=== PATIENT | male | born 1985 | race Two or more races ===

== ENCOUNTER 2020-12-17 20:51 | Emergency (ER) | payer SELFPAY ==
[~2020-12-17] VITALS: Ht 165.1 cm; Wt 63.5 kg
--- NOTE | 2020-12-17 21:15 | NUR ---
BIBRA 58 FROM HOME C/O METH OD. GIVEN NARCAN 1MG IVP. PT AAOX4 UPON TRIAGE. PT ALERT AND ORIENTED X2. PLACED ON MONITOR.
[2020-12-17] MEDS ORDERED: NALO4SPR NS (22:37)
[2020-12-17 22:56] VITALS: BP 133/80
--- NOTE | 2020-12-17 22:56 | NUR ---
Patient discharged to home in stable condition. Written and verbal after care instructions given. Patient verbalizes understanding of instruction.
== END 2020-12-17 22:57 | disposition home or self-care (01) ==
LOC: ER 20:56
DX: T40.2X1A Poisoning by other opioids, accidental (unintentional), initial encounter (principal); R11.11 Vomiting without nausea; F41.9 Anxiety disorder, unspecified; Y92.89 Other specified places as the place of occurrence of the external cause

== ENCOUNTER 2021-04-03 19:37 | Inpatient (IN) | payer MEDICAID ==
[~2021-04-03] VITALS: Ht 167.6 cm; Wt 68.0 kg
[~2021-04-03 19:37] MED LIST: NALO4SPR NS
--- NOTE | 2021-04-03 20:11 | NUR ---
PATIENT BIBRA WITH LAW ENFORCMENT @ BEDSIDE. PATIENT C/O LEFT FOOT PAIN S/P "INJECTING HEROIN". PATIENT ALERT AND ORIENTED X4. AMBULATORY WITH NON LABORED BREATHING. PATIENT DENIES HAVING S/I.
[2021-04-03] MEDS ORDERED: CT SWABBABLE VALVE TRANS SET 1 EA INFUS.SET MC ONE (20:23)
[2021-04-03] MEDS ORDERED: IV NS 0.9% 250 ML IV ONE (20:23)
[2021-04-03] MEDS ORDERED: IOHEXOL-300 100 ML VIAL IV ONE (20:23)
[2021-04-03] MEDS ORDERED: VANCOMYCIN 1 GM in IV D5W 250 ML IV ONE (20:30)
[2021-04-03] MEDS ORDERED: CEFEPIME 1 GM in IV D5W 50 ML IV ONE (20:30)
[2021-04-03] MEDS ORDERED: KETOROLAC TROMETHAMINE INJ 30 MG/ML VIAL IV ONE (20:30)
[2021-04-03] MEDS ORDERED: IV NS 0.9% 1,000 ML BAG IV ONE (20:30)
--- NOTE | 2021-04-03 20:37 | NUR ---
URINE SENT TO LAB
--- NOTE | 2021-04-03 20:37 | NUR ---
BLOOD AND CULTURES SENT TO LAB
--- NOTE | 2021-04-03 20:37 | NUR ---
PATIENT GOING TO CT.
--- NOTE | 2021-04-03 20:51 | NUR ---
PT RETURNED TO ER BED [address] VIA ERCISTEFANY
[2021-04-03] MEDS ORDERED: VANCOMYCIN 1 GM VIAL ONE (20:53)
[2021-04-03] MEDS ORDERED: CEFEPIME 1 GM VIAL ONE (20:53)
[2021-04-03] MEDS ORDERED: KETOROLAC TROMETHAMINE INJ 30 MG/ML VIAL ONE (20:53)
[2021-04-03 21:09] LABS: BASOPHILS # (AUTO) 0.1 K/uL (0.0-0.2); BASOPHILS % (AUTO) 0.6 % (0.0-2.0); EOSINOPHILS % (AUTO) 0.5 % (0.0-6.0); HEMATOCRIT 44 % (39-51); HEMOGLOBIN 14.5 g/dL (13.5-17.5); LYMPHOCYTES # (AUTO) 1.6 K/uL (0.8-4.8); LYMPHOCYTES % (AUTO) 11.7 % (20.0-44.0); MEAN CORPUSCULAR HGB CONC 33 g/dl (31.0-36.0); MEAN CORPUSCULAR VOLUME 87 fL (80-96); MONOCYTES # (AUTO) 0.8 K/uL (0.1-1.30); MONOCYTES % (AUTO) 5.9 % (2.0-12.0); NEUTROPHILS # (AUTO) 11.2 K/uL (1.8-8.9); NEUTROPHILS % (AUTO) 81.3 % (43.0-81.0); PLATELET COUNT (AUTO) 347 K/uL (150-450); RED BLOOD CELL COUNT(AUTO) 5.12 MIL/uL (4.5-6.0); WHITE BLOOD COUNT (AUTO) 13.8 K/uL (4.3-11.0)
[2021-04-03 21:12] LABS: BILIRUBIN,URINE NEGATIVE (NEGATIVE); COLOR,URINE YELLOW (YELLOW); LEUKOCYTE ESTERASE ,URINE NEGATIVE (NEGATIVE); NITRITE, URINE NEGATIVE (NEGATIVE); PROTEIN,URINE TRACE mg/dl (NEGATIVE); UGLUCOSE NEGATIVE (NEGATIVE)
[2021-04-03 21:25] LABS: BACTERIA,URINE None seen /HPF (None Seen); RBC,URINE 0-2 /HPF (0-2); WBC,URINE 0-2 /HPF (0-3)
[2021-04-03 21:26] LABS: MUCUS,URINE Many /LPF (None Seen); SQUAMOUS EPITHELIAL CELL,UR 0-2 /HPF (None Seen)
[2021-04-03 21:27] LABS: CALCIUM, SERUM 9.1 mg/dL (8.5-10.1); CARBON DIOXIDE 28 mmol/L (21-32); CHLORIDE 98 mmol/L (98-107); CREATININE 0.9 mg/dL (0.6-1.3); GLUCOSE 149 mg/dL (74-106); POTASSIUM 4.4 mmol/L (3.5-5.1); SODIUM SERUM 135 mmol/L (136-145); UREA NITROGEN, BLOOD 10 mg/dL (7-18)
--- NOTE | 2021-04-03 21:33 | NUR ---
COVID SWAB DONE AND SENT TO LAB
[2021-04-03 21:40] LABS: ALANINE AMINOTRANSFERASE 55 U/L (12-78); ALBUMIN 3.5 g/dL (3.4-5.0); ALCOHOL, BLOOD < 3 mg/dL (0-0); ALKALINE PHOSPHATASE 87 U/L (46-116); ASPARTATE AMINOTRANSFERASE 28 U/L (15-37); BILIRUBIN,DIRECT 0.2 mg/dL (0.0-0.2); BILIRUBIN,TOTAL 0.9 mg/dL (0.2-1.0); TOTAL PROTEIN, SERUM 8.5 g/dL (6.4-8.2)
[2021-04-03 22:20] LABS: ACETAMINOPHEN 0 ug/ml (10-30)
--- NOTE | 2021-04-03 23:17 | NUR ---
PATIENT RESTING COMFORTBALY NO COMPLAINTS AT THIS TIME.
--- NOTE | 2021-04-04 00:11 | NUR ---
MRSA SWAB COLLECTED AND SENT TO LAB. PATIENT'S BELONGINGS LIST DONE.
[2021-04-04] MEDS ORDERED: ACETAMINOPHEN 325 MG TABLET PO PRN (01:30)
[2021-04-04] MEDS ORDERED: Z GUARD REMEDY 4 OZ OINT TP PRN (01:30)
[2021-04-04] MEDS ORDERED: ONDANSETRON HCL/PF 4 MG/2 ML VIAL IVP PRN (01:30)
[2021-04-04] MEDS ORDERED: MAG HYDROX/AL HYDROX/SIMETH 30 ML UDC PO PRN (01:30)
[2021-04-04] MEDS ORDERED: MAGNESIUM HYDROXIDE 30 ML UDC PO PRN (01:30)
[2021-04-04] MEDS ORDERED: AZTREONAM 1 G VIAL ONE (02:48)
[2021-04-04] MEDS ORDERED: MORPHINE SULFATE INJ 2 MG/ML DISP.SYRIN ONE ×2 (02:48→08:21)
[2021-04-04] MEDS: IV NS 0.9% 1,000 ML IV PRN ×2 (03:04→16:15)
[2021-04-04] MEDS: MORPHINE SULFATE INJ 2 MG/ML DISP.SYRIN IV PRN ×4 (03:04→21:41)
--- NOTE | 2021-04-04 03:05 | NUR ---
MORPHINE 2MG GIVEN ORDERED PER PT'S REQUEST AND C/O BLE PAIN
[2021-04-04] MEDS ORDERED: AZTREONAM 1 G in IV NS 0.9% 100 ML IV SCH ×2 (05:00→13:00)
[2021-04-04] MEDS ORDERED: VANCOMYCIN 1 GM in IV D5W 250 ML IV ONE (05:30)
[2021-04-04] MEDS ORDERED: OXYC1TAB12 PO (06:30)
[2021-04-04] MEDS ORDERED: ALPR2TAB7 PO (06:30)
[2021-04-04] MEDS ORDERED: PANTOPRAZOLE 40 MG TABLET.DR PO ONE (07:43)
[2021-04-04] MEDS: PANTOPRAZOLE 40 MG TABLET.DR PO SCH (07:43)
[2021-04-04] MEDS: VANCOMYCIN 1 GM in IV D5W 250ml IV SCH ×2 (08:56→17:00)
[2021-04-04] MEDS ORDERED: HYDROMORPHONE 1 MG/1 ML DISP.SYRIN IV ONE (11:30)
[2021-04-04] MEDS ORDERED: LIDOCAINE 1%-EPI 1:100,000 20 ML VIAL ONE (11:57)
[2021-04-04] MEDS ORDERED: HYDROMORPHONE 1 MG/1 ML DISP.SYRIN ONE (11:58)
[2021-04-04] MEDS ORDERED: LIDOCAINE 1%-EPI 1:200,000 SDV 10 ML VIAL IJ ONE (12:00)
[2021-04-04] MEDS: CIPROFLOXACIN IV RTU 400 MG in PREMIX 1 EA IV SCH (12:00)
[2021-04-04] MEDS: METRONIDAZOLE 500MG/ NS 100ML 500 MG in PREMIX 1 EA IV SCH ×2 (13:40→21:32)
[2021-04-04] MEDS ORDERED: ONDANSETRON HCL/PF 4 MG/2 ML VIAL ONE (15:28)
[2021-04-04] MEDS ORDERED: MORPHINE SULFATE INJ 4 MG/ML DISP.SYRIN ONE ×2 (15:29→21:34)
[2021-04-04] MEDS ORDERED: CLONIDINE HCL 0.1 MG TABLET PO PRN (17:00)
[2021-04-04] MEDS ORDERED: LOPERAMIDE HCL (2 MG CAP) 2 MG CAPSULE PO PRN (17:00)
[2021-04-04] MEDS ORDERED: METHOCARBAMOL (500MG) 500 MG TABLET PO PRN (17:00)
--- NOTE | 2021-04-04 19:53 | NUR ---
REPORT GIVEN TO NURSE MAT FOR CASSANDRA
[2021-04-04] MEDS ORDERED: METRONIDAZOLE 500MG/ NS 100ML 100 ML IV ONE (21:27)
[2021-04-04] MEDS ORDERED: LORAZEPAM INJ 2 MG/ML VIAL ONE (23:58)
[2021-04-05] MEDS: LORAZEPAM INJ 2 MG/ML VIAL IV PRN ×2 (00:01→09:52)
[2021-04-05] MEDS: CIPROFLOXACIN IV RTU 400 MG in PREMIX 1 EA IV SCH ×2 (00:07→13:00)
[2021-04-05] MEDS: VANCOMYCIN 1 GM in IV D5W 250ml IV SCH ×2 (01:28→09:10)
[2021-04-05] MEDS ORDERED: MORPHINE SULFATE INJ 4 MG/ML DISP.SYRIN ONE ×3 (04:43→14:04)
[2021-04-05] MEDS: MORPHINE SULFATE INJ 2 MG/ML DISP.SYRIN IV PRN ×3 (04:45→14:10)
[2021-04-05 05:00] LABS: BASOPHILS # (AUTO) 0.1 K/uL (0.0-0.2); BASOPHILS % (AUTO) 0.6 % (0.0-2.0); EOSINOPHILS % (AUTO) 1.2 % (0.0-6.0); HEMATOCRIT 44 % (39-51); HEMOGLOBIN 14.5 g/dL (13.5-17.5); LYMPHOCYTES # (AUTO) 1.4 K/uL (0.8-4.8); LYMPHOCYTES % (AUTO) 17.3 % (20.0-44.0); MEAN CORPUSCULAR HGB CONC 33 g/dl (31.0-36.0); MEAN CORPUSCULAR VOLUME 86 fL (80-96); MONOCYTES # (AUTO) 0.8 K/uL (0.1-1.30); MONOCYTES % (AUTO) 9.5 % (2.0-12.0); NEUTROPHILS # (AUTO) 5.7 K/uL (1.8-8.9); NEUTROPHILS % (AUTO) 71.4 % (43.0-81.0); PLATELET COUNT (AUTO) 368 K/uL (150-450); RED BLOOD CELL COUNT(AUTO) 5.08 MIL/uL (4.5-6.0)
[2021-04-05 05:23] LABS: ALBUMIN 3.4 g/dL (3.4-5.0); CALCIUM, SERUM 9.3 mg/dL (8.5-10.1); MAGNESIUM 2.1 mg/dL (1.8-2.4); PHOSPHORUS 3.8 mg/dL (2.5-4.9); POTASSIUM 4.1 mmol/L (3.5-5.1); TOTAL PROTEIN, SERUM 8.6 g/dL (6.4-8.2)
[2021-04-05] MEDS: IV NS 0.9% 1,000 ML IV PRN (05:27)
[2021-04-05] MEDS: METRONIDAZOLE 500MG/ NS 100ML 500 MG in PREMIX 1 EA IV SCH ×2 (05:33→14:00)
--- NOTE | 2021-04-05 06:02 | NUR ---
PATIENT RESTING COMFORTABLY NO COMPLAINTS AT THIS TIME.
[2021-04-05] MEDS: PANTOPRAZOLE 40 MG TABLET.DR PO SCH (07:33)
[2021-04-05] MEDS ORDERED: PANTOPRAZOLE 40 MG TABLET.DR PO ONE (07:35)
--- NOTE | 2021-04-05 09:00 | NUR ---
FOOD SERVICE TECHNICIAN CAME IN TO SEE PATIENT AND REPORTED TO DR GLEZ SAYING THAT THEY ARE BREAKING THE 5150 HOLD, WAITING ON REPORT
[2021-04-05] MEDS ORDERED: LORAZEPAM INJ 2 MG/ML VIAL ONE (09:52)
--- NOTE | 2021-04-05 10:01 | NUR ---
SEEN BY SURESH LAW
--- NOTE | 2021-04-05 10:23 | NUR ---
Pt. is no longer SI. SW will provide pt. with addiction resources.
--- NOTE | 2021-04-05 12:20 | NUR ---
SS consult for polysubstance abuse. Pt. Is a 35-year-old male. Pt. demonstrates adequate insight to the reason for hospitalization. Per pt., he was brought to hospital by ambulance. Pt. was oriented x3, alert, and cooperative. During interview, pt. was capable of following directions, made appropriate eye-contact, and appeared groomed. Pt.'s speech was at a normal rate. Pt.'s mood was elevated. SW explored pt.'s hx of mental health and substance abuse. Per pt., he uses methamphetamines and heroin. He stated that the last time he used heroin was couple days ago. Pt. reported history of anxiety. Pt. reported that he is no longer suicidal and has not attempted. Pt. denies no homicidal ideation. Pt. denies auditory hallucinations, visual hallucinations, paranoia, or delusions. SW explored pt.'s living situation. Per pt., he lives with his dad [[address] [place] [address]]. Per pt., he reports having adequate support from his parents. Pt. is no longer on hold and will be admitted to hospital if bed is available. Pt. stated that if there is no bed available, he is willing to go home. Plan: SW provided available addiction resources and pt. accepted. Resources Provided: Substance Abuse resources provided included: [facility] Substance Abuse Self-Helpline ([facility]) ; [facility] [id number] [facility] [place] [id number] ; [facility] [address] [facility] [address] ; [facility] [address] [facility] [address] ; [facility] [address] [facility] [address] [facility] [address] [facility] [address] ; [facility] [address] [facility] [id number] ; [facility] Substance Abuse Helpline([facility] ; [facility] ; [facility] [place] [place]; [facility] [place]; [facility] [place]; [facility] [place]; [place] [facility] [place] [place]; [facility], [facility]. [place]; Alcoholics Anonymous [facility]; [facility] ; Marijuana Anonymous [facility]; Narcotics Anonymous www.na.org;
--- NOTE | 2021-04-05 14:37 | NUR ---
SPOKE WITH GIDEON [phone]
--- NOTE | 2021-04-05 15:24 | NUR ---
IV removed. Catheter intact and site benign. Pressure and 4x4 applied to site. No bleeding noted.Patient discharged to home in stable condition. Written and verbal after care instructions given. Patient verbalizes understanding of instruction.
--- NOTE | 2021-04-05 15:25 | NUR ---
PATIENT WENT AMA IN STABLE CONDITION, DR LEHMAN AWARE.
[2021-04-05 15:49] VITALS: BP 129/72
[2021-04-05] MEDS ORDERED: CLIN300C12 PO (18:27)
[2021-04-06] MEDS ORDERED: CIPROFLOXACIN HCL 500 MG TABLET PO SCH ×2 (09:00→21:00)
[2021-04-06] MEDS ORDERED: METRONIDAZOLE 500 MG TABLET PO SCH (13:00)
== END 2021-04-05 15:50 | disposition left against medical advice (07) | DRG 383 ==
LOC: ER 19:39 → TRANSITION 04-04 01:08 → UNDOADMIN 04-04 01:19 → ER 04-05 15:50
PROVIDERS: ADMIT Nurse Practitioner Family; ATTEND Nurse Practitioner Family
PROC: 0H9NXZZ Drainage of Left Foot Skin, External Approach (ICD-10-PCS; principal; 2021-04-05)
PROC: 0H9MXZZ Drainage of Right Foot Skin, External Approach (ICD-10-PCS; 2021-04-05)
DX: L03.116 Cellulitis of left lower limb (principal); E87.1 Hypo-osmolality and hyponatremia; L02.416 Cutaneous abscess of left lower limb; F41.9 Anxiety disorder, unspecified; Z88.1 Allergy status to other antibiotic agents; Z88.0 Allergy status to penicillin; F43.10 Post-traumatic stress disorder, unspecified; F11.20 Opioid dependence, uncomplicated; F12.90 Cannabis use, unspecified, uncomplicated; Z79.899 Other long term (current) drug therapy; L02.415 Cutaneous abscess of right lower limb
CPT/HCPCS: 36415; 71045-TC; 73701-TC; 80048-TC; 80053-TC; 80076-TC; 80202-TC; 81001; 83605-TC; 83735-TC; 84100-TC; 85025-TC; 85730-TC; 87040-TC; 87070-TC; 87081-TC; A4216; A6403; C9803; G0378; G0480; J0692; J0744; J1170; J1885; J2060; J2270; J2405; J3370; J3490; J7030; J7050; J7060; Q9967